=== PATIENT | female | born 1950 | race Caucasian/White ===

== ENCOUNTER → 2018-06-11 | Outpatient (CLI) | payer MEDICARE, OTHER ==
[~2018-06-11] MED LIST: ALBU90OI INH; AMIT10 PO; ASPI81CH PO; ATEN25 PO; CHOL10002 PO; DULO30 PO; ENOX60I SC; GABA300 PO; GABA600 PO; GUAI600T33 PO; HYDCHL12.5 PO; HYDR1TAB94 PO; LISI5 PO; Micro-K10 MEQ PO; NEBI5 PO; Neurontin600 MG PO; Omeprazole20 M1 PO; PRAV20 PO; PROM25 PO; ROXICODONE5 MG PO; TYLENOL PO; Ultram50 MG PO; XARELTO15 MG PO
[2018-06-11 16:19] LABS: BASOPHILS ABSOLUTE AUTO 0.01 K/mm3 (0.00-0.23); BASOPHILS PERCENT AUTO 0 % (0-2); EOSINOPHILS ABSOLUTE AUTO 0.03 K/mm3 (0.00-0.68); EOSINOPHILS PERCENT AUTO 0 % (0-6); Hematocrit 44.6 % (33.0-51.0); IMMATURE GRAN ABSOLUTE AUTO 0.01 K/mm3 (0.00-0.10); IMMATURE GRAN PERCENT AUTO 0 % (0-1); LYMPHOCYTES ABSOLUTE AUTO 2.12 K/mm3 (0.84-5.20); LYMPHOCYTES PERCENT AUTO 30 % (21-46); MONOCYTES ABSOLUTE AUTO 0.55 K/mm3 (0.16-1.47); MONOCYTES PERCENT AUTO 8 % (4-13); Mean Corpuscular HGB 28.5 pg (26.0-34.0); Mean Corpuscular HGB Conc 31.4 g/dL (31.5-36.5); Mean Corpuscular Volume 91 fL (80-100); NEUTROPHILS ABSOLUTE AUTO 4.27 K/mm3 (1.96-9.15); NEUTROPHILS PERCENT AUTO 61 % (41-73); Platelet Count 336 K/mm3 (150-400); RDW Coefficient Variation 13.4 % (11.7-14.2); RDW Standard Deviation 44.3 fL (35.1-46.3); Red Blood Cell Count 4.92 M/mm3 (3.80-5.20); White Blood Cell Count 6.99 K/mm3 (4.00-11.30)
[2018-06-11 16:28] LABS: Albumin, Blood 3.5 g/dL (3.4-5.0); Albumin/Globulin Ratio 0.9 (0.8-1.8); Bilirubin, Total 0.3 mg/dL (0.1-1.0); Bun/Creatinine Ratio 13.3 (12.0-20.0); Creatinine, Blood 1.13 mg/dL (0.40-1.00); Potassium, Blood 3.4 mmol/L (3.5-5.5); Total Protein, Blood 7.5 g/dL (6.4-8.2)
== END | disposition home or self-care (01) ==
LOC: LAB SHORT 16:10 → LAB EV 16:10
PROVIDERS: Physician Assistant
DX: R53.83 Other fatigue (principal)
CPT/HCPCS: 80053; 85025; 85379

== ENCOUNTER 2018-11-17 08:24 | Day surgery (SDC) | payer MEDICARE, OTHER ==
[~2018-11-17] VITALS: Ht 162.6 cm; Wt 118.9 kg
[~2018-11-17 08:24] MED LIST changes: +Loratadine10 MG PO; +Norco 5-325 Ta1 EACH PO; +POTCHL20ER PO; +PRAVASTATIN SOD10 MG PO; +TIZA4 PO; +VITAMIN D32000 UNIT PO; +XARELTO20 MG PO
== END 2018-11-17 10:36 | disposition home or self-care (01) ==
LOC: ORSCSDS 08:24
PROVIDERS: Internal Medicine Gastroenterology
PROC: 0DBP8ZX Excision of Rectum, Via Natural or Artificial Opening Endoscopic, Diagnostic (ICD-10-PCS; principal; 2018-11-17 09:45)
DX: Z12.11 Encounter for screening for malignant neoplasm of colon (principal); K62.1 Rectal polyp; I10 Essential (primary) hypertension; Z86.711 Personal history of pulmonary embolism; K21.9 Gastro-esophageal reflux disease without esophagitis; E66.01 Morbid (severe) obesity due to excess calories; Z68.42 Body mass index [BMI] 45.0-49.9, adult; K64.8 Other hemorrhoids; K57.30 Diverticulosis of large intestine without perforation or abscess without bleeding; Z87.891 Personal history of nicotine dependence; Z79.899 Other long term (current) drug therapy
CPT/HCPCS: 88305; J2250; J2704; J7030; J7120

== ENCOUNTER → 2019-12-17 | Outpatient (CLI) | payer MEDICARE, OTHER ==
[2019-12-17 13:48] LABS: Bilirubin, Urine Neg (Neg); Blood, Urine 1+ (Neg); Glucose Qualitative, Urine Neg (Neg); Ketones, Urine 1+ (Neg); Leukocyte Esterase, Urine 1+ (Neg); Nitrite, Urine Neg (Neg); Protein, Urine Neg (Neg); Urobilinogen, Urine NORM (Normal)
[2019-12-17 14:00] LABS: Appearance, Urine Clear (Clear); Color, Urine Yellow (P-Yellow)
[2019-12-17 14:01] LABS: Bacteria Few /hpf; Mucus Light (0-Heavy); Red Blood Cells, Urine Rare /hpf (0-2); Squamous Epithelial Cells Few /hpf (Few); White Blood Cells, Urine Rare /hpf (0-5)
== END | disposition home or self-care (01) ==
LOC: LAB SHORT 12:57 → LAB 12:57
PROVIDERS: Internal Medicine
DX: R35.0 Frequency of micturition (principal)
CPT/HCPCS: 81001; 87086

== ENCOUNTER 2020-08-12 10:57 | Emergency (ER) | payer MEDICARE, OTHER ==
[~2020-08-12] VITALS: Ht 160 cm; Wt 113.4 kg
== END 2020-08-12 12:18 | disposition home or self-care (01) ==
LOC: ER 10:57
DX: M54.31 Sciatica, right side (principal); G89.29 Other chronic pain; I10 Essential (primary) hypertension; E78.5 Hyperlipidemia, unspecified; Z88.0 Allergy status to penicillin; Z79.899 Other long term (current) drug therapy
CPT/HCPCS: 99283

== ENCOUNTER → 2020-11-18 | Outpatient (CLI) | payer MEDICARE, OTHER ==
[2020-11-18 17:02] LABS: BASOPHILS ABSOLUTE AUTO 0.03 K/mm3 (0.00-0.23); BASOPHILS PERCENT AUTO 0 % (0-2); EOSINOPHILS ABSOLUTE AUTO 0.02 K/mm3 (0.00-0.68); EOSINOPHILS PERCENT AUTO 0 % (0-6); Hematocrit 44.8 % (33.0-51.0); Hemoglobin 14.2 g/dL (11.5-16.0); IMMATURE GRAN ABSOLUTE AUTO 0.04 K/mm3 (0.00-0.10); IMMATURE GRAN PERCENT AUTO 0 % (0-1); LYMPHOCYTES PERCENT AUTO 9 % (21-46); MONOCYTES ABSOLUTE AUTO 0.74 K/mm3 (0.16-1.47); MONOCYTES PERCENT AUTO 6 % (4-13); Mean Corpuscular HGB 29.1 pg (26.0-34.0); Mean Corpuscular HGB Conc 31.7 g/dL (31.5-36.5); Mean Corpuscular Volume 92 fL (80-100); NEUTROPHILS ABSOLUTE AUTO 10.79 K/mm3 (1.96-9.15); NEUTROPHILS PERCENT AUTO 84 % (41-73); RDW Coefficient Variation 17.8 % (11.7-14.2); RDW Standard Deviation 59.1 fL (35.1-46.3); Red Blood Cell Count 4.88 M/mm3 (3.80-5.20); White Blood Cell Count 12.82 K/mm3 (4.00-11.30)
[2020-11-18 17:07] LABS: Mean Platelet Volume 8.8 fL (9.1-12.4); Platelet Count 381 K/mm3 (150-400)
[2020-11-18 17:20] LABS: Albumin, Blood 3.4 g/dL (3.4-5.0); Albumin/Globulin Ratio 0.8 (0.8-1.8); Bilirubin, Total 0.7 mg/dL (0.1-1.0); Bun/Creatinine Ratio 11.7 (12.0-20.0); Calcium, Blood 9.2 mg/dL (8.5-10.1); Creatinine, Blood 1.2 mg/dL (0.40-1.00); Globulin, Blood 4.1 g/dL (2.2-4.0); Potassium, Blood 3.4 mmol/L (3.5-5.5); Thyroid Stimulating Hormone 1.703 uIU/mL (0.360-4.800); Total Protein, Blood 7.5 g/dL (6.4-8.2)
== END | disposition home or self-care (01) ==
LOC: LAB SHORT 16:57 → LAB 16:57
PROVIDERS: Chiropractor
DX: R11.2 Nausea with vomiting, unspecified (principal); R53.83 Other fatigue; R30.9 Painful micturition, unspecified
CPT/HCPCS: 80053; 84443; 85025; 87086

== ENCOUNTER 2021-01-21 09:03 | Day surgery (SDC) | payer MEDICARE, OTHER ==
[~2021-01-21] VITALS: Ht 160 cm; Wt 91.1 kg
--- NOTE | 2021-01-21 10:13 | NUR ---
REPORT GIVEN TO ESCOBAR LOPEZ
--- NOTE | 2021-01-21 10:42 | NUR ---
PT INTO SDS VIA WC. History, Chart, Medications and Allergies reviewed before start of procedure. Lungs clear T/O to Auscultation. Patient confirms NPO status and agrees with scheduled surgery. Pre-Op teaching done. Pt verbalizes understanding. Patient States Post-Procedure ride home has been arranged.
--- NOTE | 2021-01-21 12:38 | NUR ---
01/21/21 1238 Libby Saleem History, Chart, Medications and Allergies reviewed before start of procedure. Patient confirms NPO status and agrees with scheduled surgery. 3-LEAD EKG REVIEWED WITH PHYSICIAN PRIOR TO START OF PROCEDURE. MONITOR INTACT WITH CONTINUOUS PULSE OXIMETRY AND INTERMITTENT BP. PATIENT DETERMINED TO BE ASA APPROPRIATE FOR PROPOFOL SEDATION PRIOR TO START OF PROCEDURE BY . Bite Block Placed & REMOVED AT END OF CASE.
--- NOTE | 2021-01-21 13:25 | NUR ---
Discharge instructions reviewed with patient. Patient verbalizes understanding. Copy given to patient to take home. Patient States Post-Procedure ride home has been arranged. Discharged via wheelchair to private car for ride home. IV OUT.
== END 2021-01-21 13:25 | disposition home or self-care (01) ==
LOC: ORSCMMR 09:03 → ORD 10:45 → ORSCMMR 10:45
PROVIDERS: Internal Medicine Gastroenterology
PROC: 0DB78ZX Excision of Stomach, Pylorus, Via Natural or Artificial Opening Endoscopic, Diagnostic (ICD-10-PCS; principal; 2021-01-21 10:45)
DX: R11.2 Nausea with vomiting, unspecified (principal); R63.4 Abnormal weight loss; K22.10 Ulcer of esophagus without bleeding; K21.9 Gastro-esophageal reflux disease without esophagitis; K44.9 Diaphragmatic hernia without obstruction or gangrene; K29.70 Gastritis, unspecified, without bleeding; I10 Essential (primary) hypertension; E78.5 Hyperlipidemia, unspecified; Z87.891 Personal history of nicotine dependence; Z86.711 Personal history of pulmonary embolism; Z79.01 Long term (current) use of anticoagulants; Z79.899 Other long term (current) drug therapy
CPT/HCPCS: 88305; 88312; J2704; J7120

== ENCOUNTER 2021-02-02 10:31 | Day surgery (SDC) | payer MEDICARE, OTHER ==
[~2021-02-02] VITALS: Ht 160 cm; Wt 87.9 kg
--- NOTE | 2021-02-02 12:29 | NUR ---
02/02/21 1229 ZHOU ALEXANDER PTS POTASSIUM LAB CAME BACK LOW. DR CRUZ TALKED WITH PT AND SHE WILL RESCHEDULE WHEN POTASSIUM LEVEL COMES BACK UP
== END 2021-02-02 12:35 | disposition home or self-care (01) ==
LOC: ORSCSDS 10:31
DX: M75.122 Complete rotator cuff tear or rupture of left shoulder, not specified as traumatic (principal); M75.42 Impingement syndrome of left shoulder; Z53.9 Procedure and treatment not carried out, unspecified reason; I10 Essential (primary) hypertension; E78.5 Hyperlipidemia, unspecified; Z79.01 Long term (current) use of anticoagulants; Z79.899 Other long term (current) drug therapy
CPT/HCPCS: 84132; A9270; J0171; J2250; J2795; J3370; J7120

== ENCOUNTER 2021-03-23 06:39 | Day surgery (SDC) | payer MEDICARE, OTHER ==
[~2021-03-23] VITALS: Wt 30.8 kg
--- NOTE | 2021-03-23 07:40 | NUR ---
03/23/21 0740 RACHEAL MADRIGAL VANCOMYACIN 1GM RUNNING ON PUMP DUE TO PCN ALLERGY CLINDOMYACIN 900MG TO BE INFUSED DURING SURGERY.
--- NOTE | 2021-03-23 08:38 | NUR ---
03/23/21 0838 Luz Marina Rangel A 3 INCH WIDE OLD BRUISE NOTED TO TOP OF LEFT THIGH
--- NOTE | 2021-03-23 10:14 | NUR ---
03/23/21 1014 Bina Madrid O2SAT HARDC TO GET BECAUSE OF POOR PREFUSION. PLACED AN EAR PROBE AND WAS ABLE TO GET A BETTER READING. 97% BUT WILL LOSE CONNECTION, VERY SENSITIVE.
--- NOTE | 2021-03-23 10:55 | NUR ---
03/23/21 1055 Bina Madrid PT IS RESTING IN RECLINER, SHE HAS NO PAIN AND NO NAUSEA, IS AT CHAIRSIDE. IT IS STILL DIFFICULT TO GET AN O2SAT READING, PROBE IS PLACED ON TOE AND SHE IS AT 97% WHEN SHE IS STILL.
== END 2021-03-23 12:03 | disposition home or self-care (01) ==
LOC: ORSCSDS 06:39
PROVIDERS: Orthopaedic Surgery
PROC: 0PB94ZZ Excision of Right Clavicle, Percutaneous Endoscopic Approach (ICD-10-PCS; principal; 2021-03-23 07:30)
PROC: 0LM14ZZ Reattachment of Right Shoulder Tendon, Percutaneous Endoscopic Approach (ICD-10-PCS; principal; 2021-03-23 07:30)
PROC: 0RNJ4ZZ Release Right Shoulder Joint, Percutaneous Endoscopic Approach (ICD-10-PCS; principal; 2021-03-23 07:30)
DX: M75.121 Complete rotator cuff tear or rupture of right shoulder, not specified as traumatic (principal); M75.41 Impingement syndrome of right shoulder; M19.011 Primary osteoarthritis, right shoulder; I10 Essential (primary) hypertension; N18.30 Chronic kidney disease, stage 3 unspecified; Z87.891 Personal history of nicotine dependence; F41.9 Anxiety disorder, unspecified; M79.7 Fibromyalgia; Z79.899 Other long term (current) drug therapy; Z79.01 Long term (current) use of anticoagulants
CPT/HCPCS: C1713; J0171; J1100; J2250; J2370; J2405; J2704; J3010; J3370; J7120

== ENCOUNTER → 2021-05-11 | Outpatient (CLI) | payer MEDICARE, OTHER ==
[2021-05-15 11:10] LABS: M-SPIKE, % Not Observed % (Not Observed)
== END | disposition home or self-care (01) ==
LOC: LAB SHORT 15:10
PROVIDERS: Internal Medicine
DX: R89.8 Other abnormal findings in specimens from other organs, systems and tissues (principal)
CPT/HCPCS: 84166

== ENCOUNTER 2021-06-18 12:05 | Emergency (ER) | payer MEDICARE, OTHER ==
[~2021-06-18] VITALS: Ht 154.9 cm; Wt 69.8 kg
[2021-06-18] MEDS ORDERED: Norco 5-325 Ta1 EACH PO (14:07)
== END 2021-06-18 15:30 | disposition home or self-care (01) ==
LOC: ER 12:05
DX: S01.81XA Laceration without foreign body of other part of head, initial encounter (principal); M54.2 Cervicalgia; M25.511 Pain in right shoulder; M25.561 Pain in right knee; W18.30XA Fall on same level, unspecified, initial encounter; Z88.0 Allergy status to penicillin; Z79.899 Other long term (current) drug therapy; I10 Essential (primary) hypertension; Z87.891 Personal history of nicotine dependence
CPT/HCPCS: 12011; 36415; 70450; 72125; 73030; 73562-RT; 90471; 90714; 96374; 99284-25; A9270; J3010

== ENCOUNTER → 2021-09-03 | Outpatient (CLI) | payer MEDICARE, OTHER ==
[2021-09-03 13:34] LABS: Stool Occult Bld Immuno 1 Positive (NEGATIVE)
== END | disposition home or self-care (01) ==
LOC: LAB SHORT 10:15
PROVIDERS: Internal Medicine
DX: D53.9 Nutritional anemia, unspecified (principal)
CPT/HCPCS: 82274

== ENCOUNTER 2023-04-23 19:46 | Emergency (ER) | payer MEDICARE, OTHER ==
[~2023-04-23] VITALS: Ht 152.4 cm; Wt 90.7 kg
[2023-04-23 19:52] VITALS: BP 164/89
== END 2023-04-23 20:09 | disposition home or self-care (01) ==
LOC: ER 19:46
DX: J06.9 Acute upper respiratory infection, unspecified (principal); B97.89 Other viral agents as the cause of diseases classified elsewhere; H92.01 Otalgia, right ear; I10 Essential (primary) hypertension; Z88.0 Allergy status to penicillin; Z79.899 Other long term (current) drug therapy; Z79.01 Long term (current) use of anticoagulants; Z87.891 Personal history of nicotine dependence
CPT/HCPCS: 99282

== ENCOUNTER → 2024-05-30 | Outpatient (CLI) | payer MEDICARE, OTHER ==
[~2024-05-30] MED LIST changes: +AMLODIPINE BESYL5 MG PO; +ATORVASTATIN CA20 MG PO; +AZIT250 PO; +NEURONTIN300 MG PO; +Prednisone20 MG PO
[2024-06-11 15:32] LABS: Stool Occult Bld Immuno 1 Positive (NEGATIVE)
== END ==
LOC: LAB SHORT 14:45 → LAB 14:45
PROVIDERS: Internal Medicine
DX: D64.9 Anemia, unspecified (principal)
CPT/HCPCS: G0328

== ENCOUNTER 2024-09-06 12:53 | Emergency (ER) | payer MEDICARE, OTHER ==
[~2024-09-06] VITALS: Ht 152.4 cm; Wt 122.5 kg
[2024-09-06 13:36] LABS: BASOPHILS ABSOLUTE AUTO 0.01 K/mm3 (0.00-0.23); BASOPHILS PERCENT AUTO 0 % (0-2); EOSINOPHILS ABSOLUTE AUTO 0.09 K/mm3 (0.00-0.68); EOSINOPHILS PERCENT AUTO 2 % (0-6); Hematocrit 39.8 % (33.0-51.0); Hemoglobin 12.4 g/dL (11.5-16.0); IMMATURE GRAN ABSOLUTE AUTO 0.01 K/mm3 (0.00-0.10); IMMATURE GRAN PERCENT AUTO 0 % (0-1); LYMPHOCYTES ABSOLUTE AUTO 1.23 K/mm3 (0.84-5.20); LYMPHOCYTES PERCENT AUTO 20 % (21-46); MONOCYTES ABSOLUTE AUTO 0.53 K/mm3 (0.16-1.47); MONOCYTES PERCENT AUTO 9 % (4-13); Mean Corpuscular HGB 29.4 pg (26.0-34.0); Mean Corpuscular HGB Conc 31.2 g/dL (31.5-36.5); Mean Corpuscular Volume 94 fL (80-100); Mean Platelet Volume 8.7 fL (9.1-12.4); NEUTROPHILS ABSOLUTE AUTO 4.16 K/mm3 (1.96-9.15); NEUTROPHILS PERCENT AUTO 69 % (41-73); Platelet Count 262 K/mm3 (150-400); RDW Coefficient Variation 13.5 % (11.7-14.2); RDW Standard Deviation 46.9 fL (35.1-46.3); Red Blood Cell Count 4.22 M/mm3 (3.80-5.20); White Blood Cell Count 6.03 K/mm3 (4.00-11.30)
[2024-09-06 13:43] LABS: Base Excess Venous 6.2 mmol/L; Bicarbonate Venous 28.9 mmol/L (24.0-30.0); PCO2 Venous 48.2 mmHg (38-42); pH Blood Venous 7.41 (7.34-7.37)
[2024-09-06 14:08] LABS: Calcium, Blood 9.3 mg/dL (8.5-10.1); Creatinine, Blood 0.94 mg/dL (0.40-1.00); Potassium, Blood 4.5 mmol/L (3.5-5.5)
[2024-09-06 14:33] LABS: Ethanol (Alcohol), Blood, Med <3 mg/dL; Free Thyroxine 1.07 ng/dL (0.70-1.60)
[2024-09-06] MEDS ORDERED: XARELTO20 M1 PO (14:56)
[2024-09-06] MEDS ORDERED: HYDROCODONE-AC1 EA19 PO (14:57)
[2024-09-06] MEDS ORDERED: FOLI1 PO (14:59)
[2024-09-06] MEDS ORDERED: SPIR25 PO (14:59)
[2024-09-06] MEDS ORDERED: POTA10T PO (15:00)
[2024-09-06 15:02] VITALS: BP 123/68
[2024-09-06 15:38] LABS: Source, Urine Clean Catch
[2024-09-06 15:47] LABS: Appearance, Urine Clear (Clear); Bilirubin, Urine Neg (Neg); Blood, Urine 2+ (Neg); Color, Urine Yellow (P-Yellow); Glucose Qualitative, Urine Neg (Neg); Ketones, Urine 1+ (Neg); Leukocyte Esterase, Urine 1+ (Neg); Nitrite, Urine Neg (Neg); Protein, Urine Neg (Neg); Specific Gravity, Urine 1.025 (1.003-1.022); Urobilinogen, Urine NORM (Normal)
[2024-09-06 16:06] LABS: Bacteria Rare /hpf; Squamous Epithelial Cells Rare /hpf (Few); White Blood Cells, Urine 0-2 /hpf (0-5)
[2024-09-06 16:21] LABS: Influenza A, PCR NEGATIVE (NEGATIVE); Influenza B, PCR NEGATIVE (NEGATIVE); Resp Syncytial Virus, PCR NEGATIVE (NEGATIVE); SARS-Cov-2 (COVID-19) PCR, MMC NEGATIVE (NEGATIVE)
== END 2024-09-06 17:20 | disposition home or self-care (01) ==
LOC: ER 12:53
PROVIDERS: Emergency Medicine
DX: R07.89 Other chest pain (principal); R06.02 Shortness of breath; I10 Essential (primary) hypertension; Z87.891 Personal history of nicotine dependence; Z79.899 Other long term (current) drug therapy; Z88.0 Allergy status to penicillin
CPT/HCPCS: 0241U; 70450; 71045; 80048; 80320; 81001; 82803; 82947; 83735; 83880; 84439; 84443; 84484; 85025; 85379; 87086; 93005; 93010; 99285-25